=== PATIENT | female | born 1950 | race African-American/Black ===

== ENCOUNTER 2018-03-14 19:10 | Emergency (ER) | payer MEDICARE, OTHER ==
[~2018-03-14] VITALS: Ht 157.5 cm; Wt 59.0 kg
[2018-03-14 19:17] VITALS: Ht 157.5 cm; Wt 59.0 kg
[2018-03-14 20:40] VITALS: BP 147/75
== END 2018-03-14 20:40 | disposition home or self-care (01) ==
LOC: ED 19:10
DX: S39.012A Strain of muscle, fascia and tendon of lower back, initial encounter (principal); X58.XXXA Exposure to other specified factors, initial encounter; Y93.89 Activity, other specified; Y92.89 Other specified places as the place of occurrence of the external cause; Y99.8 Other external cause status
CPT/HCPCS: J1885

== ENCOUNTER 2019-04-25 14:14 | Emergency (ER) | payer MEDICARE, OTHER ==
[~2019-04-25] VITALS: Ht 165.1 cm; Wt 58.1 kg
[2019-04-25 14:58] VITALS: Ht 165.1 cm; Wt 58.1 kg
[2019-04-25 18:04] LABS: PLATELET COUNT 159 x10^3mcL (130-400); RED CELL DISTRIBUTION WIDTH 13.9 % (11.5-14.5)
[2019-04-25 18:08] LABS: CALCIUM 9.5 mg/dL (8.5-10.1); CARBON DIOXIDE 35.6 mmol/L (21-32); CHLORIDE SERUM 103 mmol/L (98-107); CREATININE SERUM 0.7 mg/dL (0.6-1.0); GFR1 > 60 mL/min; GLUCOSE SERUM 90 mg/dL (74-106); SODIUM SERUM 142 mmol/L (136-145)
[2019-04-25 18:14] LABS: ALBUMIN 4.3 g/dL (3.4-5.0); ALKALINE PHOSPHATASE 139 U/L (46-116); ALT/SGPT 26 U/L (14-59); AST/SGOT 21 U/L (15-37); BILIRUBIN TOTAL 0.8 mg/dL (0.20-1.00)
[2019-04-25 18:15] LABS: TOTAL PROTEIN, SERUM 8.4 g/dL (6.4-8.2)
[2019-04-25 18:17] LABS: microscopic required? YES; urine erythrocyte 3+ (NEGATIVE)
[2019-04-25 19:02] LABS: BAND NEUTROPHIL 1 % (0-10); BASOPHIL 0 % (0-2); MONOCYTE 10 % (0-7); SEGMENTED NEUTROPHILS 54 % (37-75)
[2019-04-25 19:03] LABS: PLATELET MORPHOLOGY PLATELETS NORMAL; rbc morphology (normal/abnorm) NORMAL (NORMAL)
[2019-04-25 20:51] VITALS: BP 126/67
== END 2019-04-25 20:51 | disposition home or self-care (01) ==
LOC: ED 14:14
PROVIDERS: Emergency Medicine
DX: M54.41 Lumbago with sciatica, right side (principal); R31.9 Hematuria, unspecified; M25.551 Pain in right hip; I10 Essential (primary) hypertension
CPT/HCPCS: J2270; J2405; Q9967